=== PATIENT | female | born 1990 | race Caucasian/White ===

== ENCOUNTER 2017-09-06 11:00 | Emergency (ER) | payer SELFPAY ==
[~2017-09-06] VITALS: Ht 160 cm; Wt 63.5 kg
[2017-09-06 11:04] VITALS: BP 123/73; Ht 160 cm; Wt 63.5 kg
== END 2017-09-06 12:41 | disposition left against medical advice (07) ==
LOC: ED 11:00
DX: Z53.21 Procedure and treatment not carried out due to patient leaving prior to being seen by health care provider (principal)